=== PATIENT | male | born 1965 | race Caucasian/White ===

== ENCOUNTER 2018-01-27 21:56 | Emergency (ER) | payer BC ==
[2018-01-27] MEDS: Diphtheria,Pertussis(Acell),Tetanus Vaccine 0.5 ML SDV inactive IM ONE (22:00)
--- NOTE | 2018-01-28 01:38 | ER ---
HISTORY OF PRESENT ILLNESS: The patient is a 52-year-old male who comes in with a fishhook in his left middle finger. ALLERGIES: NKDA. MEDICATIONS: Current medications are: 1. Invokana 300 mg p.o. daily. 2. NovoLog 30 to 40 units with meals. 3. Lantus 80 units a day. 4. Zoloft 50 mg p.o. daily. 5. He is on losartan and Lipitor, but does not know the dose. PAST SURGICAL HISTORY: He has had left shoulder and left knee surgery. PROCEDURE: The patient has a fishhook in his left middle finger, along the shaft of the hook, was injected with 1% plain lidocaine. A 21-gauge needle was advanced along the shaft behind the adeel, and the fishhook was removed from his finger without difficulty. The patient tolerated it well. He was given a Tdap shot and discharged to home after an antibiotic ointment and dressing applied to his finger. FINAL IMPRESSION: Katherine foreign body. BRYN/EVY /[id number]
== END 2018-01-27 22:15 | disposition home or self-care (01) ==
LOC: LB.ED 21:56
DX: S60.453A Superficial foreign body of left middle finger, initial encounter (principal); Z23 Encounter for immunization; W45.8XXA Other foreign body or object entering through skin, initial encounter; Z79.899 Other long term (current) drug therapy
CPT/HCPCS: 90471; 90715; 99281; 99283-25